=== PATIENT | male | born 1980 | race Caucasian/White ===

== ENCOUNTER 2020-05-06 17:21 | Emergency (ER) | payer MEDICARE, OTHER ==
[~2020-05-06] VITALS: Ht 180.3 cm; Wt 113.4 kg
[~2020-05-06 17:21] MED LIST: NKM
--- NOTE | 2020-05-06 17:23 | NUR ---
ED Nurse Note: Patient from [facility] and brought in by RA 826 due to SI. Patient unable to specify specific SI plans at this time and denies auditory hallucinations. Patient has history of overdose. AAO x4, able to follow commands with non labored breathing. Calm and cooperative at this time.
--- NOTE | 2020-05-06 17:30 | NUR ---
ED Nurse Note: Belongings placed on psych locker #3.
[2020-05-06 17:45] VITALS: BP 133/76
[2020-05-06] MEDS ORDERED: LORazepam 1mg tab ORAL ONE (17:45)
[2020-05-06 18:21] LABS: ANION GAP -2 mmol/L (5-15); BLOOD UREA NITROGEN 27 mg/dL (7-18); CALCIUM 9.5 MG/DL (8.5-10.1); CARBON DIOXIDE 25 MMOL/L (21-32); CHLORIDE 103 MMOL/L (98-107); CREATININE 1.2 MG/DL (0.55-1.30); POTASSIUM 3.6 MMOL/L (3.5-5.1); SODIUM 126 MMOL/L (136-145)
[2020-05-06 18:26] LABS: ALANINE AMINOTRANSFERASE 22 U/L (12-78); ALBUMIN 3.7 G/DL (3.4-5.0); ALKALINE PHOSPHATASE 58 U/L (46-116); ASPARTATE AMINO TRANSFERASE 12 U/L (15-37); BILIRUBIN,TOTAL 0.2 MG/DL (0.2-1.0)
[2020-05-06 18:29] LABS: EOSINOPHILS % (AUTO) 0.2 % (0.0-3.0); HEMATOCRIT 44.5 % (42.0-52.0); HEMOGLOBIN 14.5 G/DL (14.2-18.0); LYMPHOCYTES % (AUTO) 12.1 % (20.0-45.0); MEAN CORPUSCULAR VOLUME 79 FL (80-99); MONOCYTES % (AUTO) 7.6 % (1.0-10.0); NEUTROPHILS % (AUTO) 79.2 % (45.0-75.0); PLATELET COUNT 297 K/UL (150-450); RED BLOOD COUNT 5.61 M/UL (4.70-6.10); RED CELL DISTRIBUTION WIDTH 13.2 % (11.6-14.8); WHITE BLOOD COUNT 11.8 K/UL (4.8-10.8)
--- NOTE | 2020-05-06 19:11 | NUR ---
ED Nurse Note: Report given to Cathryn ESCUDERO
[2020-05-06 19:15] VITALS: BP 145/90
--- NOTE | 2020-05-06 19:15 | NUR ---
ED Nurse Note: Report received from KOTA Persaud. Patient is resting in bed, provided with blanket for comfort. See vitals flow sheet. Patient states he is upset with the care at his previous residence due to multiple other residents in the same room as him who distrub him and would be happier at a new place.
--- NOTE | 2020-05-06 20:45 | NUR ---
ED Nurse Note: Patient provided with sandwhich and juice; tolerated well.
[2020-05-06 22:00] VITALS: BP 139/85
--- NOTE | 2020-05-06 22:00 | NUR ---
ED Nurse Note: Attempted to call board and care to inform them that patient is going back to facility and discharged. No answer.
--- NOTE | 2020-05-06 22:00 | NUR ---
ED Nurse Note: Patient provided another sandwhich; tolerated well. Patient denies SI/HI at this time, denies any suicidal plan. He is ok with going back to board and care housing. He is calm and pleasant. NAD noted. Vitals are stable.
--- NOTE | 2020-05-06 22:30 | NUR ---
ED Nurse Note: Patient states he is okay with going back to [facility] where he initially came from after speaking with BENITA. Patient is aaox4 and able to make his own decisions. He states that the board and care has an open door and reassured RN he will be able to go inside. Patient also states an individual named Yara who oversees board and care is there. sales support technician will arrange transport back to residence. Patient states he feels more comfortable with ambulance transport than ambulating out of ER on his own.
--- NOTE | 2020-05-06 22:39 | Emergency Room Report ---
History of Present Illness General Chief Complaint: Behavioral Complaint Source: Patient Present Illness HPI 40-year-old male presents to ED for behavioral evaluation. [facility]. States that he feels depressed. Denies hearing voices. Denies HI. States he does not have a plan. Denies alcohol or drug use. Does not take any medications. Does feel anxious. No other aggravating relieving factors. Denies any other associated symptoms Allergies: Coded Allergies: DIVALPROEX SODIUM (Unverified Allergy, Intermediate, 11/21/14) DIPHENHYDRAMINE (Unverified Allergy, Mild, 11/21/14) COVID-19 Screening Contact w/high risk pt: No Experienced COVID-19 symptoms?: No COVID-19 Testing performed LADIES ATTENDANT: No Patient History Past Medical History: DM, HTN, psych hx Social History: Denies: smoking, alcohol use, drug use Immunizations: UTD Reviewed Nursing Documentation: PMH: Agreed; PSxH: Agreed Nursing Documentation-PMH Hx Cardiac Problems: Yes - A.FIB Hx Hypertension: Yes Hx Pacemaker: Yes Hx Diabetes: Yes - DM I, Hx Neurological Problems: Yes - BLADDER INCONTINENCE, Hx Seizures: Yes Review of Systems All Other Systems: negative except mentioned in HPI Physical Exam Vital Signs Date Time Temp Pulse Resp B/P (MAP) Pulse Ox O2 Delivery O2 Flow Rate FiO2 05/06/20 17:13 97.0 85 18 125/84 (98) 100 Room Air Sp02 EP Interpretation: reviewed, normal General Appearance: no apparent distress, alert, GCS 15, non-toxic Head: normocephalic, atraumatic Eyes: bilateral eye normal inspection, bilateral eye PERRL ENT: hearing grossly normal, normal pharynx, no angioedema, normal voice Neck: full range of motion, supple/symm/no masses Respiratory: chest non-tender, lungs clear, normal breath sounds, speaking full sentences Cardiovascular #1: regular rate, rhythm, no edema Cardiovascular #2: 2+ carotid (R), 2+ carotid (L), 2+ radial (R), 2+ radial (L), 2+ dorsalis pedis (R), 2+ dorsalis pedis (L) Gastrointestinal: normal bowel sounds, non tender, soft, non-distended, no guarding, no rebound Rectal: deferred Genitourinary: normal inspection, no CVA tenderness Musculoskeletal: back normal, normal range of motion, gait/station normal, non- tender Neurologic: alert, motor strength/tone normal, oriented x3, sensory intact, responsive, speech normal Psychiatric: judgement/insight normal, memory normal, no suicidal/homicidal ideation, no delusions, anxious Reflexes: 3+ bicep (R), 3+ bicep (L), 3+ tricep (R), 3+ tricep (L), 3+ knee (R), 3+ knee (L) Lymphatic: no adenopathy Medical Decision Making Diagnostic Impression: Primary Impression: Behavioral change ER Course Hospital Course 40-year-old male presents feeling anxious, depressed. Boarding care Differential diagnoses include: Psychosis, EtOH, drug abuse Clinical course patient placed on stretcher. On media monitor. After initial history and physical ordered labs,, Ativan labs reviewed- Na 126, minimal leukocytosis, hemoglobin/hematocrit stable, tox negative patient allowed to rest. On reassessment states he feels better. Denies SI. Denies having a plan. Patient agrees to go back to [facility]. I feel this is a highly complex case requiring extensive working including EKG/Rhythm strip, Xray/CT/US, Blood/urine lab work, repeat exams while in ED, and administration of strong opiates/narcotics for pain control, admission to hospital or close patient follow up. Diagnosis - behavioral change Stable and discharged to [facility]. Followup with PMD/psych. Return to ED if symptoms recur or worsen Laboratory Tests Test 05/06/20 18:00 White Blood Count 11.8 K/UL (4.8-10.8) H Red Blood Count 5.61 M/UL (4.70-6.10) Hemoglobin 14.5 G/DL (14.2-18.0) Hematocrit 44.5 % (42.0-52.0) Mean Corpuscular Volume 79 FL (80-99) L Mean Corpuscular Hemoglobin 25.9 PG (27.0-31.0) L Mean Corpuscular Hemoglobin Concent 32.7 G/DL (32.0-36.0) Red Cell Distribution Width 13.2 % (11.6-14.8) Platelet Count 297 K/UL (150-450) Mean Platelet Volume 6.3 FL (6.5-10.1) L Neutrophils (%) (Auto) 79.2 % (45.0-75.0) H Lymphocytes (%) (Auto) 12.1 % (20.0-45.0) L Monocytes (%) (Auto) 7.6 % (1.0-10.0) Eosinophils (%) (Auto) 0.2 % (0.0-3.0) Basophils (%) (Auto) 1.0 % (0.0-2.0) Sodium Level 126 MMOL/L (136-145) L Potassium Level 3.6 MMOL/L (3.5-5.1) Chloride Level 103 MMOL/L (98-107) Carbon Dioxide Level 25 MMOL/L (21-32) Anion Gap -2 mmol/L (5-15) L Blood Urea Nitrogen 27 mg/dL (7-18) H Creatinine 1.2 MG/DL (0.55-1.30) Estimat Glomerular Filtration Rate > 60 mL/min (>60) Glucose Level 119 MG/DL (74-106) H Calcium Level 9.5 MG/DL (8.5-10.1) Total Bilirubin 0.2 MG/DL (0.2-1.0) Aspartate Amino Transf (AST/SGOT) 12 U/L (15-37) L Alanine Aminotransferase (ALT/SGPT) 22 U/L (12-78) Alkaline Phosphatase 58 U/L (46-116) Total Protein 7.5 G/DL (6.4-8.2) Albumin 3.7 G/DL (3.4-5.0) Globulin 3.8 g/dL Albumin/Globulin Ratio 1.0 (1.0-2.7) Salicylates Level 2.4 ug/mL (2.8-20) L Urine Opiates Screen Negative (NEGATIVE) Acetaminophen Level < 2 MCG/ML (10-30) L Urine Barbiturates Screen Negative (NEGATIVE) Phencyclidine (PCP) Screen Negative (NEGATIVE) Urine Amphetamines Screen Negative (NEGATIVE) Urine Benzodiazepines Screen Negative (NEGATIVE) Urine Cocaine Screen Negative (NEGATIVE) Urine Marijuana (THC) Screen Negative (NEGATIVE) Serum Alcohol < 3 mg/dL Last Vital Signs Date Time Temp Pulse Resp B/P (MAP) Pulse Ox O2 Delivery O2 Flow Rate FiO2 05/06/20 22:00 98.0 101 18 139/85 97 Room Air Status: improved Disposition: ASSISTED LIVING Condition: Stable Referrals: [facility] Patient Instructions: Depression, Adult, [id number] Juliano James MD May 06, 2020 22:39
--- NOTE | 2020-05-06 23:15 | NUR ---
ED Nurse Note: Attempted again to call board and care; no answer. graphics edit technician and devulcanizer charger also called with no answer.
--- NOTE | 2020-05-06 23:30 | NUR ---
ED Nurse Note: Patient is cleared for discharge back to [facility] at this time by BENITA. He is aaox4, breathing is normal and unlabored and vital signs are stable at time of ER departure. ID band removed. Patient is being transported back to residence at [facility] via [facility] BLS unit [id number]. Patient signed discharge paperwork and verbalized discharge instructions. He took all belongings with him.
[2020-05-07 00:30] VITALS: BP 129/82
--- NOTE | 2020-05-07 00:30 | NUR ---
ED Nurse Note: Patient brought back by [facility] d/t ambulance personnel were unable to contact [facility] personnel to admit patient back. Patient aao x 4 and ambulatory upon return. No acute distress noted.
--- NOTE | 2020-05-07 03:30 | NUR ---
ER DISCHARGE NOTE: Patient is cleared to be discharged per ERMD, pt is aox4, on room air, with stable vital signs. pt was given dc paperwork, pt was able to verbalize understanding, pt id band removed. pt is able to ambulate with steady gait. pt took all belongings. pt stated "I will go back home." No acute distress noted during departure.
--- NOTE | 2020-05-07 04:08 | NUR ---
ED Nurse Note: Patient walked back in and stated he will cooperate and will wait for transportation back to [facility] care.
--- NOTE | 2020-05-07 07:04 | NUR ---
HAND-OFF: Report given to KOTA Lloyd.
--- NOTE | 2020-05-07 08:00 | NUR ---
ED Nurse Note: Received pt from KOTA Brown for continuity of care. Pt on bed, asleep, breathing even and unlabored, no acute distress noted.
[2020-05-07 08:34] VITALS: BP 130/85
--- NOTE | 2020-05-07 09:13 | NUR ---
ED Nurse Note: SPOKE WITH ELADIO JARVIS, CLIENT EXPERIENCE SPECIALIST OF [facility] [place]. WAS TOLD THAT IDA WILL RECEIVE THE PATIENT AT THE [facility]
--- NOTE | 2020-05-07 11:54 | NUR ---
ED Nurse Note: [facility] unit #[id number] here to transport back to board and care Addendum: 05/07/20 at 1156 by EVA all belongings removed from psych locker and returned to patient. pt ambulatory with steady gait, no c/o SI or HI at this time. VSS upon discharge
[2020-05-07 11:56] VITALS: BP 130/85
== END 2020-05-07 11:55 | disposition home or self-care (01) ==
LOC: EDBD 17:21 → EMR 19:15
DX: R46.89 Other symptoms and signs involving appearance and behavior (principal); I48.91 Unspecified atrial fibrillation; I10 Essential (primary) hypertension; E10.9 Type 1 diabetes mellitus without complications; G40.909 Epilepsy, unspecified, not intractable, without status epilepticus; R32 Unspecified urinary incontinence; Z95.0 Presence of cardiac pacemaker; Z88.8 Allergy status to other drugs, medicaments and biological substances
CPT/HCPCS: 36415; 80053; 80307; 85025; 99283; G0480

== ENCOUNTER 2020-05-07 22:55 | Emergency (ER) | payer MEDICARE, OTHER ==
[~2020-05-07] VITALS: Ht 185.4 cm; Wt 109.3 kg
[2020-05-07 23:01] VITALS: BP 148/88
--- NOTE | 2020-05-07 23:01 | NUR ---
ED Nurse Note: PT BROUGHT IN BY RA [id number] [facility] AFTER ALTERCATION WITH ROOMMATES. PT STATES HE HAS BEEN HAVING SUICIDAL THOUGHTS WITH PLANS TO HANG SELF X 1 YEAR WITH NO RESOLVE. PT AAO X 4, AMBULATES WITH STEADY GAIT, APPEARS DISHEVELED AND UNKEMPT, WEARING DIAPERS AND CARRYING PACIFIER AROUND NECK. PT STATES DIAPERS ARE FOR NEW ONSET OF INCONTINENCE SINCE DECEMBER 2019. AWAITING ERMD AT BEDSIDE. AWAITING FURTHER ORDERS.
--- NOTE | 2020-05-07 23:10 | NUR ---
ED Nurse Note: ERMD AT BEDSIDE.
--- NOTE | 2020-05-07 23:23 | Emergency Room Report ---
History of Present Illness General Chief Complaint: Behavioral Complaint Source: Patient Present Illness HPI Disclaimer: Please note that this report is being documented using DRAGON technology. This can lead to erroneous entry secondary to incorrect interpretation by the dictating instrument. HPI: 40-year-old male history of anxiety and depression presents for evaluation of agitation. The patient states he was "triggered emotionally" by something that happened at his boarding care facility. Came in for suicidal ideation with no plan and currently no intent to harm himself. Denies HI. Denies drug or alcohol use. He reports anxiety and depression that have been stable for the past 1.5 years. He has a history of incontinence and therefore is in the [id number] facility. He states he just needs something to calm down and wants to be medically evaluated. He was in our emergency department last night for similar presentation. PMH: Arrhythmia status post ablation, incontinence of urine and stool PSH: Cardiac ablation Allergies: Benadryl Social Hx: Denies drug or alcohol use Allergies: Coded Allergies: DIVALPROEX SODIUM (Unverified Allergy, Intermediate, 11/21/14) DIPHENHYDRAMINE (Unverified Allergy, Mild, 11/21/14) COVID-19 Screening Contact w/high risk pt: No Experienced COVID-19 symptoms?: No COVID-19 Testing performed CLINICAL APPEALS AUDITOR: No Nursing Documentation-PMH Past Medical History: No History, Except For Hx Cardiac Problems: Yes - A.FIB Hx Hypertension: Yes Hx Pacemaker: Yes Hx Diabetes: Yes Hx Gastrointestinal Problems: Yes - bowel and bladder incontinence History Of Psychiatric Problem: Yes Hx Neurological Problems: Yes - BLADDER INCONTINENCE, Hx Cerebrovascular Accident: Yes Hx Seizures: Yes Review of Systems All Other Systems: negative except mentioned in HPI Physical Exam Vital Signs Date Time Temp Pulse Resp B/P (MAP) Pulse Ox O2 Delivery O2 Flow Rate FiO2 05/07/20 22:51 98.4 133 16 148/88 (108) 98 Room Air General: Awake and alert, anxious appearing HEENT: NC/AT. EOMI. Cardiovascular: Tachycardic. S1 and S2 normal. No murmur appreciated Resp: Normal work of breathing. No cough, wheezing or crackles appreciated Abdomen: Wearing adult diaper. Abdomen is soft, nondistended. Nontender Skin: Intact. No abrasions, laceration or rash over the exposed skin MSK: Normal tone and bulk. Moving all extremities. No obvious deformity. Neuro: Awake and alert. Mentating appropriately. Currently denies SI/HI Medical Decision Making Diagnostic Impression: Primary Impression: Anxiety ER Course Is a 40 male presenting from [facility] for evaluation of emotional distress and reported suicidal ideation now resolved. Patient was given small dose of Ativan which improved his symptoms. He denies SI or HI at this time. Police have evaluated the patient and believe he is not a threat or meet 5150 hold criteria. He is feeling better now. His labs returned within normal limits. No electrolyte abnormalities, intoxicants or other findings. Unable to return the patient to his [facility] and will sleep in the emergency department till the morning. He is in stable condition. This patient is a chronic risk of self injury due to poor impulse control, limited coping skills, and judgment intermittently impaired by intoxication. I believe that the available clinical evidence suggests that these characteristics derived primarily from personality disorder and are likely very stable over time. Hospitalization would likely attenuate risk of self-harm only during penitentiary period, without lasting risk reduction. Serious self-harm, while possible, would likely be inadvertent, and because of impulsivity, and foreseeable. For these reasons, I do not believe hospitalization would provide meaningful reduction in risk of self-harm. Laboratory Tests Test 05/07/20 23:20 White Blood Count 9.5 K/UL (4.8-10.8) Red Blood Count 5.53 M/UL (4.70-6.10) Hemoglobin 14.4 G/DL (14.2-18.0) Hematocrit 45.1 % (42.0-52.0) Mean Corpuscular Volume 82 FL (80-99) Mean Corpuscular Hemoglobin 26.0 PG (27.0-31.0) L Mean Corpuscular Hemoglobin Concent 31.8 G/DL (32.0-36.0) L Red Cell Distribution Width 12.9 % (11.6-14.8) Platelet Count 268 K/UL (150-450) Mean Platelet Volume 6.2 FL (6.5-10.1) L Neutrophils (%) (Auto) 68.2 % (45.0-75.0) Lymphocytes (%) (Auto) 21.4 % (20.0-45.0) Monocytes (%) (Auto) 8.6 % (1.0-10.0) Eosinophils (%) (Auto) 0.7 % (0.0-3.0) Basophils (%) (Auto) 1.1 % (0.0-2.0) Sodium Level 140 MMOL/L (136-145) Potassium Level 3.4 MMOL/L (3.5-5.1) L Chloride Level 106 MMOL/L (98-107) Carbon Dioxide Level 24 MMOL/L (21-32) Anion Gap 10 mmol/L (5-15) Blood Urea Nitrogen 25 mg/dL (7-18) H Creatinine 0.9 MG/DL (0.55-1.30) Estimated Glomerular Filtration Rate > 60 mL/min (>60) Glucose Level 114 MG/DL (74-106) H Calcium Level 8.8 MG/DL (8.5-10.1) Total Bilirubin 0.3 MG/DL (0.2-1.0) Aspartate Amino Transferase (AST) 14 U/L (15-37) L Alanine Aminotransferase (ALT) 30 U/L (12-78) Alkaline Phosphatase 51 U/L (46-116) Total Protein 7.4 G/DL (6.4-8.2) Albumin 3.8 G/DL (3.4-5.0) Globulin 3.6 g/dL Albumin/Globulin Ratio 1.1 (1.0-2.7) Salicylates Level 1.8 ug/mL (2.8-20) L Urine Opiates Screen Negative (NEGATIVE) Acetaminophen Level < 2 MCG/ML (10-30) L Urine Barbiturates Screen Negative (NEGATIVE) Phencyclidine (PCP) Screen Negative (NEGATIVE) Urine Amphetamines Screen Negative (NEGATIVE) Urine Benzodiazepines Screen Negative (NEGATIVE) Urine Cocaine Screen Negative (NEGATIVE) Urine Marijuana (THC) Screen Negative (NEGATIVE) Serum Alcohol < 3 mg/dL Last Vital Signs Date Time Temp Pulse Resp B/P (MAP) Pulse Ox O2 Delivery O2 Flow Rate FiO2 05/07/20 22:51 98.4 133 16 148/88 (108) 98 Room Air Disposition: HOME, SELF-CARE Condition: Stable Referrals: NOT CHOSEN IPA/,REFERRING (PCP) Asael Carroll MD May 07, 2020 23:23
[2020-05-07] MEDS ORDERED: LORazepam Inj 2mg/ml 1ml IV ONE (23:30)
[2020-05-07 23:42] LABS: BASOPHILS % (AUTO) 1.1 % (0.0-2.0); EOSINOPHILS % (AUTO) 0.7 % (0.0-3.0); HEMATOCRIT 45.1 % (42.0-52.0); HEMOGLOBIN 14.4 G/DL (14.2-18.0); LYMPHOCYTES % (AUTO) 21.4 % (20.0-45.0); MEAN CORPUSCULAR VOLUME 82 FL (80-99); MONOCYTES % (AUTO) 8.6 % (1.0-10.0); NEUTROPHILS % (AUTO) 68.2 % (45.0-75.0); PLATELET COUNT 268 K/UL (150-450); RED BLOOD COUNT 5.53 M/UL (4.70-6.10); RED CELL DISTRIBUTION WIDTH 12.9 % (11.6-14.8); WHITE BLOOD COUNT 9.5 K/UL (4.8-10.8)
--- NOTE | 2020-05-07 23:49 | NUR ---
ED Nurse Note: ALL MEDICATIONS ADMINISTERED, PT TOLERATED WELL NO SS OF DISTRESS NOTED. WILL CONTINUE TO MONITOR.
[2020-05-07 23:54] LABS: ANION GAP 10 mmol/L (5-15); BLOOD UREA NITROGEN 25 mg/dL (7-18); CALCIUM 8.8 MG/DL (8.5-10.1); CARBON DIOXIDE 24 MMOL/L (21-32); CHLORIDE 106 MMOL/L (98-107); CREATININE 0.9 MG/DL (0.55-1.30); POTASSIUM 3.4 MMOL/L (3.5-5.1); SODIUM 140 MMOL/L (136-145)
--- NOTE | 2020-05-07 23:58 | NUR ---
ED Nurse Note: UA OBTAINED AND SENT TO LAB
--- NOTE | 2020-05-08 | NUR ---
ED Nurse Note: [employer] AT BEDSIDE
[2020-05-08 00:06] LABS: ALANINE AMINOTRANSFERASE 30 U/L (12-78); ALBUMIN 3.8 G/DL (3.4-5.0); ALBUMIN/GLOBULIN RATIO 1.1 (1.0-2.7); ALKALINE PHOSPHATASE 51 U/L (46-116); ASPARTATE AMINO TRANSFERASE 14 U/L (15-37); BILIRUBIN,TOTAL 0.3 MG/DL (0.2-1.0)
--- NOTE | 2020-05-08 00:45 | NUR ---
ED Nurse Note: ERMD AT BEDSIDE FOR RE EVAL
--- NOTE | 2020-05-08 01:10 | NUR ---
ED Nurse Note: pt given juice, water, and sandwich per ermd
[2020-05-08 01:26] VITALS: BP 129/76
[2020-05-08] MEDS ORDERED: LORazepam 1mg tab ORAL ONE (01:45)
--- NOTE | 2020-05-08 01:48 | NUR ---
ED Nurse Note: all medications administered, pt tolerated well no ss of distres snoted. will continue to monitor.
--- NOTE | 2020-05-08 02:55 | NUR ---
ED Nurse Note: pt sleepin in bed with audible snoring, no ss of distress noted. will continue to monitor.
[2020-05-08 03:30] VITALS: BP_SYST 12; BP_SYST 121; BP_DIAS 76
--- NOTE | 2020-05-08 03:55 | NUR ---
ED Nurse Note: pt sleeping in bed, VSS no ss of distress noted. will continue to monitor.
--- NOTE | 2020-05-08 04:55 | NUR ---
ED Nurse Note: PT SLEEPING IN BED, VSS NO SS OF DISTRESS NOTED. WILL CONTINUE TO MONITOR.
[2020-05-08 05:45] VITALS: BP 119/73
--- NOTE | 2020-05-08 05:55 | NUR ---
ED Nurse Note: pt sleeping in bed, vss no ss of distress noted. will continue to monitor.
--- NOTE | 2020-05-08 06:55 | NUR ---
ED Nurse Note: pt sleeping in bed, vss no ss of distress noted. will continue to monitor
[2020-05-08 07:30] VITALS: BP 126/71
--- NOTE | 2020-05-08 07:30 | NUR ---
ED Nurse Note: Report received from KOTA Shelton. Pt in stable condition, lying in bed comfortably with no signs of distress. A+ox4.
--- NOTE | 2020-05-08 08:00 | NUR ---
ED Nurse Note: Pt denies SI/HI. Pt is calm and cooperative.
[2020-05-08 09:30] VITALS: BP 133/79
[2020-05-08 13:10] VITALS: BP 130/80
== END 2020-05-08 13:10 | disposition home or self-care (01) ==
LOC: EDBD 22:55 → EMR 23:08
DX: F41.9 Anxiety disorder, unspecified (principal); R00.0 Tachycardia, unspecified; E11.9 Type 2 diabetes mellitus without complications; I10 Essential (primary) hypertension; G40.909 Epilepsy, unspecified, not intractable, without status epilepticus; Z86.73 Personal history of transient ischemic attack (TIA), and cerebral infarction without residual deficits; F32.9 Major depressive disorder, single episode, unspecified; Z88.6 Allergy status to analgesic agent; Z95.0 Presence of cardiac pacemaker
CPT/HCPCS: 36415; 80053; 80307; 85025; 96374; 99284; G0480

== ENCOUNTER 2020-05-15 08:44 | Emergency (ER) | payer MEDICARE, OTHER ==
[~2020-05-15] VITALS: Ht 167.6 cm; Wt 108.9 kg
--- NOTE | 2020-05-15 08:58 | NUR ---
ED Nurse Note: Pt arrived by ambulance. Per EMS he was found on the street curb stating that he wanted to lie in the street to be run over by a car. he states that he was recently asked to leave his boarding home that he has been staying at. Pt is a/o x4 and has a disheveled appearance. He is ambulatory and walks with a steady gait. His breathing is even and unlabored, no signs of distress noted.
[2020-05-15] MEDS ORDERED: LITHIUM CARBON150 MG ORAL (09:02)
[2020-05-15] MEDS ORDERED: GABAPENTIN100 MG ORAL (09:02)
[2020-05-15] MEDS ORDERED: RISPERDAL0.5 MG ORAL (09:02)
[2020-05-15] MEDS ORDERED: QUETIAPINE FUMA25 MG ORAL (09:02)
[2020-05-15] MEDS ORDERED: METFORMIN HCL500 M1 ORAL (09:02)
[2020-05-15] MEDS ORDERED: LEXAPRO10 MG ORAL (09:02)
[2020-05-15 09:10] VITALS: BP 124/82
[2020-05-15] MEDS ORDERED: LORazepam 1mg tab ORAL ONE (09:30)
--- NOTE | 2020-05-15 10:27 | NUR ---
ED Nurse Note: spoke with Es from [facility]. Per Es, call when pt is dc for placement as the patient is being sent to a facility assigned to them. [phone]
[2020-05-15] MEDS ORDERED: Sertraline 50mg tab ORAL ONE (10:30)
--- NOTE | 2020-05-15 10:32 | Emergency Room Report ---
History of Present Illness General Chief Complaint: Suicidal Source: Patient, Medical Record Present Illness HPI 40-year-old male presents for evaluation. Brought in by EMS from Street. Per EMS patient was evicted from his boarding care. Patient states he wants to hurt himself. Denies hearing voices. Denies drug use. States he has not been taking his psych meds. Does not know the names of them. Denies alcohol use. No other aggravating relieving factors. Denies any other associated symptoms Allergies: Coded Allergies: DIVALPROEX SODIUM (Unverified Allergy, Intermediate, 11/21/14) DIPHENHYDRAMINE (Unverified Allergy, Mild, 11/21/14) COVID-19 Screening Contact w/high risk pt: No Experienced COVID-19 symptoms?: Yes COVID-19 Testing performed INSTRUCTOR KINDERGARTEN: No Patient History Past Medical History: HTN, psych hx Past Surgical History: none Pertinent Family History: none Social History: Denies: smoking, alcohol use, drug use Immunizations: UTD Reviewed Nursing Documentation: PMH: Agreed; PSxH: Agreed Nursing Documentation-PMH Past Medical History: No History, Except For Hx Cardiac Problems: Yes - A.FIB Hx Hypertension: Yes Hx Pacemaker: Yes Hx Diabetes: Yes Hx Gastrointestinal Problems: Yes - bowel and bladder incontinence History Of Psychiatric Problem: Yes - Depression, Bipolar, Schizophrenia Hx Neurological Problems: Yes - BLADDER INCONTINENCE, Hx Cerebrovascular Accident: Yes Hx Seizures: Yes Review of Systems All Other Systems: negative except mentioned in HPI Physical Exam Vital Signs Date Time Temp Pulse Resp B/P (MAP) Pulse Ox O2 Delivery O2 Flow Rate FiO2 05/15/20 08:44 98.2 110 18 124/82 (96) 98 Room Air 05/15/20 09:10 98 Sp02 EP Interpretation: reviewed, normal General Appearance: no apparent distress, alert, GCS 15, non-toxic Head: normocephalic, atraumatic Eyes: bilateral eye normal inspection, bilateral eye PERRL ENT: hearing grossly normal, normal pharynx, no angioedema, normal voice Neck: full range of motion, supple/symm/no masses Respiratory: chest non-tender, lungs clear, normal breath sounds, speaking full sentences Cardiovascular #1: regular rate, rhythm, no edema Cardiovascular #2: 2+ carotid (R), 2+ carotid (L), 2+ radial (R), 2+ radial (L), 2+ dorsalis pedis (R), 2+ dorsalis pedis (L) Gastrointestinal: normal bowel sounds, non tender, soft, non-distended, no guarding, no rebound Rectal: deferred Genitourinary: normal inspection, no CVA tenderness Musculoskeletal: back normal, normal range of motion, gait/station normal, non- tender Neurologic: alert, motor strength/tone normal, oriented x3, sensory intact, responsive, speech normal Psychiatric: judgement/insight normal, memory normal, no suicidal/homicidal ideation, no delusions, anxious Reflexes: 3+ bicep (R), 3+ bicep (L), 3+ tricep (R), 3+ tricep (L), 3+ knee (R), 3+ knee (L) Skin: no rash Lymphatic: no adenopathy Medical Decision Making Diagnostic Impression: Primary Impression: Behavioral change ER Course Hospital Course 40-year-old male presents for psychiatric evaluation Differential diagnoses include: withdrawal symtpoms, overdose of psychiatric med ications, drug ingestion, sepsis Clinical course Patient placed on stretcher. On monitor worker. After initial history and physical I ordered sertraline and Ativan On reassessment patient feels better. I do not suspect SI or HI. I do suspect that patient is not happy with his living situation. They will arrange transport to another facility. I will provide refills of his medications i. I feel this is a highly complex case requiring extensive working including EKG/Rhythm strip, Xray/CT/US, Blood/urine lab work, repeat exams while in ED, and administration of strong opiates/narcotics for pain control, admission to hospital or close patient follow up. Diagnosis - behavioral change Stable and discharged to assisted living. Followup with PMD/psychiatrist. Return to ED if symptoms recur or worsen Last Vital Signs Date Time Temp Pulse Resp B/P (MAP) Pulse Ox O2 Delivery O2 Flow Rate FiO2 05/15/20 09:36 109 18 122/82 97 05/15/20 09:10 Room Air 98 05/15/20 09:10 98.2 Status: improved Disposition: ASSISTED LIVING Condition: Stable Scripts Risperidone (RISPERDAL) 3 Mg Tablet 3 MG PO DAILY, #30 TAB Prov: Juliano James MD 05/15/20 Sertraline Hcl* (ZOLOFT*) 50 Mg Tablet 50 MG ORAL DAILY for Mood, #30 TAB Prov: Juliano James MD 05/15/20 Referrals: NOT CHOSEN IPA/,REFERRING (PCP) Juliano James MD May 15, 2020 10:32
--- NOTE | 2020-05-15 10:46 | NUR ---
ED Nurse Note: Pt is resting comfortably eating a sandwich and drinking juice. No signs of distress noted.
--- NOTE | 2020-05-15 11:35 | NUR ---
ED Nurse Note: Pt denies SI/HI. Pt reports that he didn't want to hurt himself, just didn't want to be at that board and care so he left. He wants to be placed at another facility. Pt calm and cooperative.
--- NOTE | 2020-05-15 12:03 | NUR ---
ED Nurse Note: FAXED OVER CLINICALS TO ALICIA @ [facility]. PER ALICIA, WILL CALL BACK WITH ROOM #
--- NOTE | 2020-05-15 12:58 | NUR ---
ED Nurse Note: SPOKE WITH ALICIA PT IS ACCEPTED AT [facility] ROOM 3A. # FOR REPORT: [phone] Addendum: 05/15/20 at 1309 by [email or web address] [facility]
[2020-05-15] MEDS ORDERED: RISPERDAL3 MG PO (12:59)
[2020-05-15] MEDS ORDERED: SERTRALINE HCL50 MG ORAL (12:59)
--- NOTE | 2020-05-15 14:18 | NUR ---
ED Nurse Note: Report given to KOTA Lloyd @ [facility]. [facility] @ bedside unit 625 received report.
--- NOTE | 2020-05-15 14:20 | NUR ---
ED Nurse Note: Pt still denying HI/SI, calm and cooperative.
[2020-05-15 14:25] VITALS: BP 135/85
--- NOTE | 2020-05-15 14:25 | NUR ---
ER DISCHARGE NOTE: Patient is cleared to be discharged to post acute per ERMD, pt is aox4, on room air, with stable vital signs. pt was given dc and prescription instructions and was able to verbalize understanding. Packet provided for [facility]. pt is able to ambulate with steady gait. pt took all belongings with him. Pt discharged safely via gurney en route to [facility].
== END 2020-05-15 14:25 | disposition home or self-care (01) ==
LOC: EDBD 08:44 → EMR 09:08
DX: R46.89 Other symptoms and signs involving appearance and behavior (principal); I10 Essential (primary) hypertension; E11.9 Type 2 diabetes mellitus without complications; G40.909 Epilepsy, unspecified, not intractable, without status epilepticus; I48.91 Unspecified atrial fibrillation; R32 Unspecified urinary incontinence; R15.9 Full incontinence of feces; Z95.0 Presence of cardiac pacemaker; Z88.8 Allergy status to other drugs, medicaments and biological substances; Z86.73 Personal history of transient ischemic attack (TIA), and cerebral infarction without residual deficits
CPT/HCPCS: 99283